=== PATIENT | female | born 1950 | race Caucasian/White ===

== ENCOUNTER 2017-06-22 09:58 | Emergency (ER) | payer OTHER ==
[2017-06-22 10:04] VITALS: BP 142/87; PULSE 93; TEMP 98.4; BMI 25.0
[2017-06-22] MEDS ORDERED: ALBUTEROL SO4 2.5/IPRATROPIUM 0.5 INH SOL 3 ML VIAL.NEB. NEB ONE ×3 (11:18→12:43)
--- NOTE | 2017-06-22 11:21 | PDOC ---
History of Present Illness - General Chief Complaint: Cold Symptoms Stated Complaint: COUGH Time Seen by Provider: 06/22/17 11:09 History Source: Patient, Family Exam Limitations: Language Barrier (her adult daughter provided lao translation) - History of Present Illness Initial Comments: CHIEF COMPLAINT: 67 y/o female with PMH HTN and depression c/o cough x 6 days. HISTORY OF PRESENT ILLNESS: The patient admits periodically she brings up brown sputum with cough but it is mostly dry. She also admits to runny nose. She denies f/c, body aches, CRUZ, n/v/d, CP, SOB, abd pain. SHe has been taking home remedies for her symptoms. Vital signs on arrival are notable for pulse of 93 with O2 sat of 96%. REVIEW OF SYSTEMS: GENERAL/CONSTITUTIONAL: No fever/chills. No weakness. No weight change. HEAD, EYES, EARS, NOSE AND THROAT: +runny nose. No change in vision. No ear pain or discharge. No sore throat. CARDIOVASCULAR: No chest pain or shortness of breath. RESPIRATORY: +cough. No wheezing or hemoptysis. GASTROINTESTINAL: No abd pain, nausea, vomiting, diarrhea. GENITOURINARY: No dysuria, frequency, or change in urination. MUSCULOSKELETAL: No joint or muscle swelling or pain. No neck or back pain. SKIN: No rash or easy bruising. NEUROLOGIC: No headache, vertigo, loss of consciousness, or loss of sensation. PHYSICAL EXAM: GENERAL: The patient is awake, alert, and fully oriented, in no acute distress. She is well appearing. She has no cough in the ER. HEAD: Normal with no signs of trauma. ENT: Pupils equal, round and reactive to light, extraocular movements intact, sclera anicteric, conjunctiva clear. Neck supple. LUNGS: Expiratory wheezing and rhonchi in posterior fitzgerald. Normal excursion. No respiratory distress or use of accessory muscles. CV: RRR, S1/S2, no MRG. Cap refill < 2 sec. ABDOMEN: Soft, non-distended, non-tender even to deep palpation, no hepatomegaly or splenomegaly, no masses. EXTREMITIES: Normal range of motion, no edema. NEUROLOGICAL: Normal speech, normal gait. CN II-XII grossly intact. PSYCH: Normal mood, normal affect. SKIN: Warm, dry, normal turgor, no rashes or lesions noted. Past History - Past Medical History Allergies/Adverse Reactions: Allergies Allergy/AdvReac Type Severity Reaction Status Date / Time No Known Allergies Allergy Verified 06/22/17 10:00 Home Medications: Ambulatory Orders Albuterol 0.083% Nebulizer Bety [Ventolin 0.083% Nebulizer Soln -] 1 neb NEB Q4H #20 vial 06/22/17 Azithromycin [Zithromax -] 250 mg PO UTDICT #6 tab 06/22/17 Nebulizer [Aeroneb Go Nebuliser] 1 each MC Q4H #1 each 06/22/17 COPD: No HTN: Yes - Suicide/Smoking/Psychosocial Hx Smoking History: Never smoked Have you smoked in the past 12 months: No Information on smoking cessation initiated: No Hx Alcohol Use: No Drug/Substance Use Hx: No Substance Use Type: None *Physical Exam - Vital Signs Last Vital Signs Temp Pulse Resp BP Pulse Ox 98.4 F 93 H 20 142/87 96 06/22/17 10:00 06/22/17 10:00 06/22/17 10:00 06/22/17 10:00 06/22/17 10:00 Medical Decision Making - Medical Decision Making A/P: 67 y/o female with cough and wheezing x 6 days. Plan is as follows: 1. CXR 2. Duoneb x 3 CXR IMPRESSION: No acute pathology. AFter 3 treatments the lungs are CTA. The patient states she feels much better. WIll d/c with dx of bronchitis, send rx for zpack, nebulizer and albuterol to her pharmacy. INstructed her to return to the ER with any worsening or concerning symptoms. The patient verbalizes understanding of all instructions, has no further questions and is awaiting discharge. *DC/Admit/Observation/Transfer Diagnosis at time of Disposition: Cough, Wheezing, Bronchitis - Discharge Dispostion Disposition: HOME Condition at time of disposition: Improved - Referrals - Patient Instructions Printed Discharge Instructions: DI for Acute Bronchitis Additional Instructions: Discharge Instructions: -You have bronchitis -Prescriptions for medication have been sent to your pharmacy; please take as prescribed -Return to the ER with any worsening or concerning symptoms Instrucciones de descarga: -Tienes bronquitis - Se ordgers enviado las recetas de medicamentos a santos farmacia. por favor tome seg n lo prescrito -Volver a la felipe de urgencias con cualquier empeoramiento o sntomas Print Language: ROMANSH - Post Discharge Activity
[2017-06-22] MEDS: ALBUTEROL SO4 2.5/IPRATROPIUM 0.5 INH SOL 3 ML VIAL.NEB. NEB SCH ×2 (12:52→13:13)
== END 2017-06-22 13:47 | disposition home or self-care (01) ==
LOC: JERFT 09:58
PROC: 3E0F7GC Introduction of Other Therapeutic Substance into Respiratory Tract, Via Natural or Artificial Opening (ICD-10-PCS; principal; 2017-06-22)
DX: J40 Bronchitis, not specified as acute or chronic (principal); R06.2 Wheezing; R05 Cough; F32.9 Major depressive disorder, single episode, unspecified
CPT/HCPCS: 71046-TC; 94640; 99281-25